=== PATIENT | male | born 1985 | race Caucasian/White ===

== ENCOUNTER → 2017-07-24 | Outpatient (CLI) | payer OTHER ==
[~2017-07-24] MED LIST: GADOBUTROL 10 ML VIAL IVP ONE
== END ==
LOC: FIMAGING 18:47
PROVIDERS: ATTEND Surgery
DX: L97.329 Non-pressure chronic ulcer of left ankle with unspecified severity (principal); M25.472 Effusion, left ankle
CPT/HCPCS: A9585